=== PATIENT | female | born 2000 | race Caucasian/White ===

== ENCOUNTER 2020-08-21 13:50 | Emergency (ER) | payer OTHER ==
[~2020-08-21] VITALS: Ht 167.6 cm; Wt 100.0 kg
[~2020-08-21 13:50] MED LIST: ALBU1.252 IH; ALBU17AE16 IH; IBUP-2759 PO
[2020-08-21 15:00] VITALS: BP 119/71
[2020-08-21] MEDS ORDERED: POVIDONE-IODINE 10% 15 ML SOLUTION UD TP ONE (15:15)
[2020-08-21] MEDS ORDERED: BACITRACIN 0.9 GM PACKET OINTMENT TP ONE (15:15)
[2020-08-21] MEDS ORDERED: IBUPROFEN 600 MG TABLET PO ONE (15:15)
== END 2020-08-21 15:30 | disposition home or self-care (01) ==
LOC: EMS 13:56
DX: S61.431A Puncture wound without foreign body of right hand, initial encounter (principal); J45.909 Unspecified asthma, uncomplicated; W54.0XXA Bitten by dog, initial encounter; Y93.89 Activity, other specified; Y92.89 Other specified places as the place of occurrence of the external cause; Y99.8 Other external cause status
CPT/HCPCS: 99283